=== PATIENT | male | born 1975 | race Caucasian/White ===

== ENCOUNTER 2019-08-08 17:27 | Emergency (ER) | payer OTHER ==
--- NOTE | 2019-08-08 17:52 | EDM.PDOC ---
ED HPI GENERAL MEDICAL PROBLEM - General Stated Complaint: L KNEE INJURY Time Seen by Provider: 08/08/19 17:52 Source of Information: Reports: Patient History Limitations: Reports: No Limitations - History of Present Illness INITIAL COMMENTS - FREE TEXT/NARRATIVE: 43-year-old male who works at [employer] and was attempting to climb up onto the catwalk along his truck and he looked and struck his left knee and proximal left lower leg against the metal grating on the catwalk. This occurred approximately 5 PM today. He does have pain in the anterior left knee and the proximal anterior left lower leg. There is some swelling in the proximal anterior left lower leg and that is where most of the pain is. It is a sharp pain that he rates as a 6/10. The pain is worse with palpation. He is ambulatory without really any problems. He has no problems moving his knee. There does not appear to be any looseness or laxity in his left knee. He has no neck or back pain. He has normal sensation in his left foot. There are no other associated signs or symptoms. There are no other modifying factors. Onset: Today (5 PM) Duration: Constant Location: Reports: Lower Extremity, Left (Anterior left knee and anterior proximal left lower leg) Quality: Reports: Ache, Sharp, Other (Sore) Severity: Moderate Improves with: Reports: Rest Worsens with: Reports: Other (Palpation) Context: Reports: Trauma Associated Symptoms: Reports: No Other Symptoms Treatments CAPTION WRITER: Reports: Other (see below) (Nothing) Left Knee Pain Score (Numeric/FACES): 8 - Related Data Allergies Allergy/AdvReac Type Severity Reaction Status Date / Time sulfamethoxazole Allergy Mild Rash Verified 08/08/19 17:55 [From Bactrim] trimethoprim [From Bactrim] Allergy Mild Rash Verified 08/08/19 17:55 Past Medical History Endocrine/Metabolic History: Reports: Obesity/BMI 30+ - Past Surgical History Musculoskeletal Surgical History: Reports: ORIF (Of left ankle) Social & Family History - Tobacco Use Smoking Status *Q: Never Smoker Tobacco Use Within Last Twelve Months: Smokeless Tobacco - Alcohol Use Alcohol Use History: No - Living Situation & Occupation Occupation: 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[employer].) Review of Systems - Review of Systems Review Of Systems: See Below Constitutional: Reports: No Symptoms Eyes: Reports: No Symptoms Ears: Reports: No Symptoms Nose: Reports: No Symptoms Mouth/Throat: Reports: No Symptoms Respiratory: Reports: No Symptoms Cardiovascular: Reports: No Symptoms GI/Abdominal: Reports: No Symptoms Genitourinary: Reports: No Symptoms Musculoskeletal: Reports: Leg Pain (Left knee and left lower leg as above) Skin: Reports: Bruising (And some swelling in the proximal your left lower leg and knee area.) Neurological: Reports: No Symptoms ED EXAM, GENERAL - Physical Exam Exam: See Below Exam Limited By: No Limitations General Appearance: Alert, No Apparent Distress, Obese Eye Exam: Bilateral Eye: EOMI, Normal Inspection Ears: Normal External Exam, Hearing Grossly Normal Ear Exam: Bilateral Ear: Auricle Normal Nose: Normal Inspection, Normal Mucosa, No Blood Throat/Mouth: Normal Inspection, Normal Oropharynx, Normal Voice, No Airway Compromise Head: Atraumatic, Normocephalic Neck: Normal Inspection, Supple, Non-Tender, Full Range of Motion Respiratory/Chest: No Respiratory Distress, Lungs Clear, Normal Breath Sounds, No Accessory Muscle Use, Chest Non-Tender Cardiovascular: Normal Peripheral Pulses, Regular Rate, Rhythm Peripheral Pulses: 2+: Radial (L), Radial (R) GI/Abdominal: Normal Bowel Sounds, Soft, Non-Tender, Other (Protuberant) Back Exam: Normal Inspection Extremities: Normal Range of Motion, Normal Capillary Refill, Other (Tenderness and swelling over the proximal, anterior left lower leg. There is no crepitus or subcutaneous emphysema. He has full range of motion in the left knee without clicking or instability.) Neurological: Alert, Oriented, CN II-XII Intact, Normal Cognition, No Motor/ Sensory Deficits Skin Exam: Warm, Dry, Intact, Normal Color, No Rash Course - Vital Signs Last Recorded V/S: Last Vital Signs Temp 36.6 C 08/08/19 17:55 Pulse 86 08/08/19 17:55 Resp 20 08/08/19 17:55 BP 145/110 H 08/08/19 17:55 Pulse Ox 98 08/08/19 17:55 - Orders/Labs/Meds Orders: Active Orders 24 hr Category Date Time Status Tibia Fibula Lt [CR] Stat Exams 08/08/19 18:09 Taken - Radiology Interpretation Free Text/Narrative:: X-ray of left knee and left tib-fib shows no fracture. - Re-Assessments/Exams Free Text/Narrative Re-Assessment/Exam: 08/08/19 19:25: The x-rays of the patient's left knee and tib-fib were negative for fracture. He appears to have a soft tissue contusion with a hematoma in his proximal anterior left lower leg. We will apply an Uziel wrap to above the knee to the left lower leg. He is to stay off of his left leg as much possible for the next few days and try to keep it elevated. He may take ibuprofen and Tylenol for pain as needed. His blood pressure was elevated in the emergency department and I have advised him to follow-up with his primary doctor in regard to this. Departure - Departure Time of Disposition: 19:40 Disposition: Home, Self-Care 01 Condition: Good Clinical Impression: Contusion of left knee, initial encounter, Contusion of left lower leg, initial encounter, Elevated blood pressure reading Fall from slipping Qualifiers: Encounter type: initial encounter Qualified Code(s): W01.0XXA - Fall on same level from slipping, tripping and stumbling without subsequent striking against object, initial encounter - Discharge Information Instructions: Contusion, [id number] Referrals: PCP,None [Primary Care Provider] - Forms: ED Department Discharge Additional Instructions: The x-rays of your left knee and left lower leg showed no evidence of fracture. He appeared to have a bruise to these areas and a hematoma or collection of blood underneath the skin of the left lower leg. Use the Uziel wrap for comfort and support for the next 4-5 days. Try to stay off of the left leg as much as possible for the next 2 days and elevated higher than your heart level as often as possible. You should also apply ice packs intermittently to the area for the next 2 days. You may take ibuprofen and Tylenol as needed for pain. Your blood pressure was elevated in the emergency department. You should follow-up with your primary doctor in regard to this in the next 1-2 weeks. Back to the emergency department for her to increase in pain, redness, increased swelling or any other concerning sign or symptom. Sepsis Event Note - Focused Exam Vital Signs: Vital Signs Temp Pulse Resp BP Pulse Ox 08/08/19 17:55 36.6 C 86 20 145/110 H 98 Date Exam was Performed: 08/08/19 Time Exam was Performed: 20:10 - My Orders Last 24 Hours: My Active Orders 08/08/19 18:09 Tibia Fibula Lt [CR] Stat - Assessment/Plan Last 24 Hours: My Active Orders 08/08/19 18:09 Tibia Fibula Lt [CR] Stat
--- NOTE | 2019-08-10 10:43 | CR ---
INDICATION: Fall with injury to left knee and lower leg. LEFT TIB/FIB: Four images of the left tibia and fibula were obtained 08/08/19 - no comparisons. There appears to be significant soft tissue swelling about the tibia and fibula , which may simply be body habitus. An intact plate with multiple screws is noted at the distal fibula, presumably due to a previous fracture that is now healed. 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 A fracture or dislocation was not identified. Bone density appeared to be normal. IMPRESSION: 1. No acute fracture or dislocation. 2. 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 [facility]
== END 2019-08-08 20:28 | disposition home or self-care (01) ==
LOC: FB.ED 17:27
DX: S80.02XA Contusion of left knee, initial encounter (principal); S80.12XA Contusion of left lower leg, initial encounter; R03.0 Elevated blood-pressure reading, without diagnosis of hypertension; F17.220 Nicotine dependence, chewing tobacco, uncomplicated; E66.9 Obesity, unspecified; Z68.41 Body mass index [BMI] 40.0-44.9, adult; Z88.1 Allergy status to other antibiotic agents; W01.0XXA Fall on same level from slipping, tripping and stumbling without subsequent striking against object, initial encounter; Y92.89 Other specified places as the place of occurrence of the external cause; Y99.0 Civilian activity done for income or pay
CPT/HCPCS: 73590-LT; 99000; 99283-25

== ENCOUNTER 2022-07-12 15:34 | Emergency (ER) | payer OTHER ==
[2022-07-12] MEDS: Sodium Chloride 0.9% 1,000 ML IV SCH ×2 (15:40→16:41)
[2022-07-12] MEDS ORDERED: Sodium Chloride 0.9% 10 ML Syringe FLUSH PRN (15:43)
[2022-07-12] MEDS ORDERED: Diphtheria,Pertussis(Acell),Tetanus Vaccine 0.5 ML Syringe IM ONE (16:01)
[2022-07-12 16:19] LABS: ESTIMATED GFR 85 mL/min (>60)
[2022-07-12] MEDS ORDERED: HYDROmorphone 2 MG/ML SDV IVPUSH STA (16:26)
[2022-07-12] MEDS ORDERED: Sodium Chloride 0.9% 1,000 ML IV SCH (16:45)
== END 2022-07-12 17:38 ==
LOC: MERGE 15:34 → FB.ED 15:34 → EDBD 15:34 → FB.ED 17:38
DX: S01.511A Laceration without foreign body of lip, initial encounter (principal); S89.91XA Unspecified injury of right lower leg, initial encounter; M25.511 Pain in right shoulder; R07.81 Pleurodynia; M25.551 Pain in right hip; M25.561 Pain in right knee; R94.31 Abnormal electrocardiogram [ECG] [EKG]; Z88.0 Allergy status to penicillin; Z88.2 Allergy status to sulfonamides; Z23 Encounter for immunization; V69.49XA Driver of heavy transport vehicle injured in collision with other motor vehicles in traffic accident, initial encounter; Y92.410 Unspecified street and highway as the place of occurrence of the external cause
CPT/HCPCS: 36415; 71045; 73030; 73502; 73560; 73590; 73610; 80053; 80307; 85025; 85610; 85730; 90471; 90715; 93005; 93010; 96361; 96374; 99285; J1170; J7030